=== PATIENT | female | born 1990 | race Caucasian/White ===

== ENCOUNTER 2020-02-27 19:51 | Inpatient (IN) | payer OTHER ==
[2020-02-27] MEDS ORDERED: Tranexamic Acid 1,000 MG in Sodium Chloride 0.9% 100 ML IV PRN (21:33)
[2020-02-27] MEDS ORDERED: Ondansetron 4 MG/2 ML SDV IVPUSH PRN (21:33)
[2020-02-27] MEDS ORDERED: Lidocaine 1% 30 ML SDV INJECT PRN (21:33)
[2020-02-27] MEDS ORDERED: Sodium Chloride 0.9% 10 ML Syringe FLUSH PRN (21:33)
[2020-02-27] MEDS ORDERED: Lactated Ringers 1,000 ML IV ONE (21:33)
[2020-02-27] MEDS ORDERED: Misoprostol 400 MCG (4 X 100 MCG TAB) RECTAL PRN (21:33)
[2020-02-27] MEDS ORDERED: Methylergonovine 0.2 MG/1 ML Amp IM PRN (21:33)
[2020-02-27] MEDS ORDERED: Carboprost Tromethamine 250 MCG/1 ML Amp IM PRN (21:33)
[2020-02-27] MEDS ORDERED: hydrOXYzine HCl 25 MG Tab PO PRN (21:36)
[2020-02-27] MEDS ORDERED: Oxytocin/Normal Saline 30 UNIT/500 ML BAG IV SCH (21:45)
--- NOTE | 2020-02-28 00:08 | HP ---
CHIEF COMPLAINT: Leakage of fluid. HISTORY OF PRESENT ILLNESS: A 29-year-old 1, para 0, currently at 37- 0/7 weeks' gestation based on last menstrual period, presents to Labor and Delivery for evaluation of spontaneous rupture of membranes that occurred around 1745 this evening. Reports that the fluid was clear, possibly a little bit cloudy. She is also having good movement and contractions about every 5 minutes and very mild. No bleeding. Denies any other pregnancies, specific problems, and she is group B strep negative. Last check in the office, her cervix was closed, 25%, -3, and baby was vertex. She denies other issues. HISTORY: First without complications. anatomy ultrasound with bilateral ventricular echogenic focus, otherwise normal. She does plan on and to avoid an intrathecal, but understands that she may change her mind when labor starts going. Also, hoping for delayed cord clamping. LABORATORY DATA: She is blood type A positive. Antibody screen negative. Rubella immune. Syphilis serology nonreactive. Hepatitis B negative. HIV negative. TSH normal 2.17. Hepatitis C negative. Wet prep did show some clue cells and she was treated. One-hour glucose test of 193. Three-hour test fasting of 77, 1 hour 184, 2 hours 141, and 3 hours 98. Group B strep is negative. PAST MEDICAL HISTORY: Unremarkable. She has some tattoos and piercings, but no significant major medical problems. SURGICAL HISTORY: Tonsillectomy in 2004. FAMILY HISTORY: Mother has depression, hypertension, and sleep apnea. Father has hypertension. Three sisters and 1 brother all alive and well. Maternal grandmother with type 2 diabetes and sleep apnea. Maternal grandfather with type 2 diabetes. Paternal grandmother with diabetes and paternal grandmother also has a pancreatic cancer. Paternal grandfather had a heart attack at age 57. SOCIAL HISTORY: The patient is to [place]. This will be their first child together. He quit smoking about 6 months ago. She has never smoked. They have 2 Basset Hounds. 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 MEDICATIONS THIS : Claritin, vitamin, metronidazole, albuterol as needed. ALLERGIES: No known drug allergies. CURRENT MEDICATION: vitamin only. REVIEW OF SYSTEMS: Negative. Denies any headaches, blurry vision, chest pain, shortness of breath, right upper quadrant pain, coughing, sneezing. She has had some edema during the well controlled with some compression hose. No skin rashes. No dysuria. No vaginal irritation or itching. Just a cloudy clear rupture of fluid earlier today. No gastrointestinal complaints. OBJECTIVE: General: Pleasant 29-year-old female appearing her stated age. She is comfortable with her contractions and carries on a conversation without any change in behavior with contractions. Vital Signs: Blood pressure 119/62, pulse of 90, respiratory rate of 18, temperature is 98.7 Fahrenheit. HEENT: Grossly unremarkable. Heart: Regular without murmur. Lungs: Clear to auscultation bilaterally. Abdomen: Gravid, soft, nontender, and bowel sounds are positive. Baseline heart rate at 140 beats per minute. Moderate qyzl-xh-xgrd variability. Accelerations noted. [place] with contractions every 1 to 3 minutes. Cervix exam per the nurse is 1 cm leaking clear fluid. Extremities: No edema, erythema, or tenderness noted. Psychiatrical: No focal deficits. The patient is very pleasant. ASSESSMENT: 1. 37-0/7 weeks' intrauterine by last menstrual period. 2. 1, para 0. 3. Spontaneous rupture of membranes at 1745. 4. Blood type A positive, rubella immune, group B strep negative. 5. Bacterial vaginosis on wet prep. PLAN: At this time, the patient will be admitted to Labor and Delivery. Nursing staff can let me know if any problems or concerns arise. I have made some Vistaril available to help her sleep and get some rest while she can and while she is in early labor. If her contractions space out or she is not making adequate cervical change, we will plan on augmenting with Pitocin. The BV does not need to be treated, but would be a questionable cause of her spontaneous rupture and early term labor onset. Anticipate that she will be in labor for probably a good 18 hours and by then her doctor will be available for delivery. I will let Dr. Santo know that she has the option to come in and deliver her if she delivers before then. Otherwise, I will be happy to watch her through the night. [facility] /[id number] MTDD
[2020-02-28] MEDS: Lactated Ringers 1,000 ML IV SCH ×3 (04:01→11:30)
--- NOTE | 2020-02-28 07:38 | PCM.PNLD ---
Labor Progress Note - VS & Meds Vital Signs: Last Vital Signs Temp 36.7 C 02/28/20 04:00 Pulse 72 02/28/20 06:30 Resp 18 02/27/20 20:02 BP 123/79 02/28/20 06:30 Pulse Ox Active Medications: Current Medications Acetaminophen (Tylenol) 650 mg PO Q4H PRN PRN Reason: Pain (Mild 1-3) and fever Carboprost Tromethamine (Hemabate Ds) 250 mcg IM ASDIRECTED PRN PRN Reason: HEMORRHAGE Fentanyl (Sublimaze) 100 mcg IVPUSH Q1H PRN PRN Reason: Pain (moderate 4-6) Hydroxyzine HCl (Atarax) 25 - 50 mg PO BEDTIME PRN PRN Reason: Sleep Lactated Ringer's (Ringers, Lactated) 1,000 mls @ 125 mls/hr IV ASDIRECTED BA Last Admin: 02/28/20 04:01 Dose: 125 mls/hr Oxytocin/Sodium Chloride (Pitocin In Ns 30 Unit/500 Ml) 30 unit in 500 mls @ 2 mls/hr IV TITRATE BA; Protocol Last Titration: 02/28/20 06:02 Dose: 5 munits/min, 5 mls/hr Tranexamic Acid 1,000 mg/ (Sodium Chloride) 110 mls @ 660 mls/hr IV ONETIME PRN PRN Reason: Bleeding Lidocaine HCl (Xylocaine-Mpf 1%) 30 ml INJECT ASDIRECTED PRN PRN Reason: Perineal Repair Methylergonovine Maleate (Methergine) 0.2 mg IM ASDIRECTED PRN PRN Reason: Hemorrhage Misoprostol (Cytotec) 800 mcg RECTAL ASDIRECTED PRN PRN Reason: Hemorrhage Ondansetron HCl (Zofran) 4 mg IVPUSH Q4H PRN PRN Reason: Nausea/Vomiting Sodium Chloride (Saline Flush) 10 ml FLUSH ASDIRECTED PRN PRN Reason: Keep Vein Open Discontinued Medications Lactated Ringer's (Ringers, Lactated) 1,000 mls @ 999 mls/hr IV BOLUS ONE Stop: 02/27/20 22:33 Last Admin: 02/28/20 04:03 Dose: Not Given - Uterine Contractions Uterine Monitoring Mode: External [place] Contraction Frequency (min): intermittent tracing Contraction Duration (sec): 80-90 Contraction Intensity: Moderate to Strong Uterine Resting Tone: Soft - Monitoring Heart Rate (FHR) Baseline: 130 Heart Rate (FHR) Variability: Moderate (6-25 bmp) Accelerations: Present, 15x15 Decelerations: None Strip Review: Category I - Vaginal Exam Dilation (cm): 1 Effacement (Percent): 75 Station: -1 Cervical Position: Anterior Sterile Vaginal Exam Performed By: Kinjal Santo - Labor Progress (Free Text) Labor Progress: Patient starting to get more uncomfortable with contractions. Kitty every 3-5 minutes. No concerns. Will continue to increase pitocin per protocol.
[2020-02-28] MEDS: fentaNYL 100 MCG/2 ML SDV IVPUSH PRN ×2 (09:17→10:36)
[2020-02-28] MEDS ORDERED: Benzocaine/Menthol 20%-0.5% Spray 56 GM Canister TOP PRN (19:41)
[2020-02-28] MEDS: Ibuprofen 800 MG Tab PO PRN (20:06)
[2020-02-29] MEDS: Acetaminophen 325 MG Tab PO PRN ×2 (03:08→22:08)
[2020-02-29] MEDS: Ibuprofen 800 MG Tab PO PRN ×2 (08:12→16:58)
[2020-02-29] MEDS: Prenatal Multivitamin with Calcium/Folic Acid/Iron Tab PO SCH (08:14)
[2020-02-29] MEDS: Docusate Sodium 100 MG Cap PO PRN ×2 (08:14→22:10)
--- NOTE | 2020-03-01 00:22 | PCM.DEL ---
L & D Note - General Info Date of Service: 02/28/20 Mother's Due Date: 03/19/20 - Delivery Note Labor: Spontaneous, Augmented by Oxytocin Delivery Outcome: Livebirth Infant Delivery Method: Spontaneous Vaginal Delivery-Single Presentation: Vertex Nuchal Cord: Present Anesthesia Type: Local Anesthetic: Lidocaine (Xylocaine) 1% Plain Local Anesthetic Volume: 4cc Amniotic Fluid Description: Clear Episiotomy Type: None Laceration: 1st Degree, Perineal Suture type: Vicryl Suture size: 3-0 Placenta: Intact, Spontaneous Cord: 3 Vessels Estimated Blood Loss: 250 [place]: Bulb Syringe, Stimulated, [place] Used Provider: Kinjal Santo Score 1 min: 9 Score 5 min: 9 Delivery Comments (Free Text/Narrative):: 29-year-old at 37w0d presented to L&D with SROM. Patient was aquilino every 2-3 minutes. Patient progressed through the first stage of labor slowly. Pitocin was started for augmentation due to contractions spacing out. Patient received IV fentanyl for pain control. Around 1100, patient was noted to be 4 cm. She desired an intrathecal for pain control. Patient was unable to undergo intrathecal placement as she rapidly progressed from 4 cm to complete. Patient pushed well for approximately 20 minutes and delivered a viable female infant with Apgars of 9 and 9 at 1 and 5 minutes respectively. was placed on mother's stomach. Cord was clamped x 2 after pulsing ceased. Umbilical cord was cut by patient's . Cord blood was collected. A first degree perineal laceration was noted--bleeding persisted despite pressure to the area so a single figure-of-8 suture was placed for hemostasis after 4 mL of 1% lidocaine was used for anesthesia. Placenta delivered about 5 minutes later and was noted to be intact. There was a small amount of brisk bleeding but this resolved with pitocin initiation. Bleeding improved and uterine tone was noted to be appropriate. Patient tolerated the procedure well, and all questions were answered. Induction Criteria - Augmentation Estimated Pelvis: Reports: Adequate Weight Estimated:: Reports: AGA Reassuring Monitoring Strip: Yes Absence of Tachy Systole: Yes - General Info Date of Service: 02/28/20 - Patient Data Vitals - Most Recent: Last Vital Signs Temp 36.9 C 02/29/20 20:00 Pulse 87 02/29/20 20:00 Resp 16 02/29/20 20:00 BP 124/78 02/29/20 20:00 Pulse Ox 100 02/29/20 08:00 Weight - Most Recent: 87.543 kg Med Orders - Current: Current Medications Acetaminophen (Tylenol) 650 mg PO Q4H PRN PRN Reason: Pain (Mild 1-3) and fever Last Admin: 02/29/20 22:08 Dose: 650 mg Benzocaine/Menthol (Dermoplast Pain Relief [place]) 1 gm TOP ASDIRECTED PRN PRN Reason: Pain Last Admin: 02/28/20 20:07 Dose: 1 spray Carboprost Tromethamine (Hemabate Ds) 250 mcg IM ASDIRECTED PRN PRN Reason: HEMORRHAGE Docusate Sodium (Colace) 100 mg PO BID PRN PRN Reason: Constipation Last Admin: 02/29/20 22:10 Dose: 100 mg Fentanyl (Sublimaze) 100 mcg IVPUSH Q1H PRN PRN Reason: Pain (moderate 4-6) Last Admin: 02/28/20 10:36 Dose: 100 mcg Hydroxyzine HCl (Atarax) 25 - 50 mg PO BEDTIME PRN PRN Reason: Sleep Lactated Ringer's (Ringers, Lactated) 1,000 mls @ 125 mls/hr IV ASDIRECTED BA Last Admin: 02/28/20 11:30 Dose: 125 mls/hr Oxytocin/Sodium Chloride (Pitocin In Ns 30 Unit/500 Ml) 30 unit in 500 mls @ 2 mls/hr IV TITRATE BA; Protocol Last Titration: 02/28/20 11:55 Dose: 500 mls/hr Tranexamic Acid 1,000 mg/ (Sodium Chloride) 110 mls @ 660 mls/hr IV ONETIME PRN PRN Reason: Bleeding Ibuprofen (Motrin) 800 mg PO Q8H PRN PRN Reason: Pain Last Admin: 02/29/20 16:58 Dose: 800 mg Lidocaine HCl (Xylocaine-Mpf 1%) 30 ml INJECT ASDIRECTED PRN PRN Reason: Perineal Repair Last Admin: 02/28/20 12:00 Dose: 30 ml Methylergonovine Maleate (Methergine) 0.2 mg IM ASDIRECTED PRN PRN Reason: Hemorrhage Misoprostol (Cytotec) 800 mcg RECTAL ASDIRECTED PRN PRN Reason: Hemorrhage Ondansetron HCl (Zofran) 4 mg IVPUSH Q4H PRN PRN Reason: Nausea/Vomiting Last Admin: 02/28/20 11:13 Dose: 4 mg Prenat Multivit/Auto Body Painter/Iron/Folic Ac ( Plus Iron) 1 each PO WITHBREAKFAST BA Last Admin: 02/29/20 08:14 Dose: 1 each Sodium Chloride (Saline Flush) 10 ml FLUSH ASDIRECTED PRN PRN Reason: Keep Vein Open Discontinued Medications Lactated Ringer's (Ringers, Lactated) 1,000 mls @ 999 mls/hr IV BOLUS ONE Stop: 02/27/20 22:33 Last Admin: 02/28/20 04:03 Dose: Not Given - Problem List & Annotations (1) PROM (premature rupture of membranes) SNOMED Code(s): 27459599 Code(s): O42.90 - ELENA ROM, 7TH0 BETW RUPT & ONST LABR, UNSP WEEKS OF GEST Status: Acute Current Visit: Yes (2) care SNOMED Code(s): 215754077, 80354291, 419935694, 850389651 Code(s): Z34.90 - ENCNTR FOR SUPRVSN OF NORMAL , UNSP, UNSP TRIMESTER Status: Acute Current Visit: Yes (3) (normal spontaneous vaginal delivery) SNOMED Code(s): 30374649, 859032587 Code(s): O80 - ENCOUNTER FOR FULL-TERM UNCOMPLICATED DELIVERY Status: Acute Current Visit: Yes (4) Perineal laceration SNOMED Code(s): 903125009 Code(s): FUT1960 - Status: Acute Current Visit: Yes - Problem List Review Problem List Initiated/Reviewed/Updated: Yes - My Orders Last 24 Hours: My Active Orders 02/29/20 08:02 Docusate Sodium [Colace] 100 mg PO BID PRN 02/29/20 08:30 Vit with Ca/FA/Iron [ Plus Iron] 1 each PO WITHBREAKFAST - Assessment Assessment:: 29-year-old, now , status post at 37w1d - Plan Plan:: 1. Initiate routine cares. 2. Plans to breastfeed. 3. Anticipate discharge 03/01/2020 Kinjal Santo MD
--- NOTE | 2020-03-01 00:27 | PCM.PNPP ---
- General Info Date of Service: 02/29/20 Subjective Update: Patient is doing well. Some cramping that is well controlled with ibuprofen. Vaginal bleeding has improved. Some discomfort with urinating. Passing gas. Tolerating a general diet. No dizziness or lightheadedness with ambulation. No fever or chills. is working well with use of a nipple shield. No concerns per patient or per nursing staff. Functional Status: Reports: Pain Controlled, Tolerating Diet, Ambulating, Urinating - Review of Systems General: Reports: No Symptoms HEENT: Reports: No Symptoms Pulmonary: Reports: No Symptoms Cardiovascular: Reports: No Symptoms Gastrointestinal: Reports: No Symptoms Musculoskeletal: Reports: No Symptoms Skin: Reports: No Symptoms Neurological: Reports: No Symptoms - Patient Data Vital Signs - Most Recent: Last Vital Signs Temp 36.9 C 02/29/20 20:00 Pulse 87 02/29/20 20:00 Resp 16 02/29/20 20:00 BP 124/78 02/29/20 20:00 Pulse Ox 100 02/29/20 08:00 Weight - Most Recent: 87.543 kg Med Orders - Current: Current Medications Acetaminophen (Tylenol) 650 mg PO Q4H PRN PRN Reason: Pain (Mild 1-3) and fever Last Admin: 02/29/20 22:08 Dose: 650 mg Benzocaine/Menthol (Dermoplast Pain Relief [place]) 1 gm TOP ASDIRECTED PRN PRN Reason: Pain Last Admin: 02/28/20 20:07 Dose: 1 spray Carboprost Tromethamine (Hemabate Ds) 250 mcg IM ASDIRECTED PRN PRN Reason: HEMORRHAGE Docusate Sodium (Colace) 100 mg PO BID PRN PRN Reason: Constipation Last Admin: 02/29/20 22:10 Dose: 100 mg Fentanyl (Sublimaze) 100 mcg IVPUSH Q1H PRN PRN Reason: Pain (moderate 4-6) Last Admin: 02/28/20 10:36 Dose: 100 mcg Hydroxyzine HCl (Atarax) 25 - 50 mg PO BEDTIME PRN PRN Reason: Sleep Lactated Ringer's (Ringers, Lactated) 1,000 mls @ 125 mls/hr IV ASDIRECTED BA Last Admin: 02/28/20 11:30 Dose: 125 mls/hr Oxytocin/Sodium Chloride (Pitocin In Ns 30 Unit/500 Ml) 30 unit in 500 mls @ 2 mls/hr IV TITRATE BA; Protocol Last Titration: 02/28/20 11:55 Dose: 500 mls/hr Tranexamic Acid 1,000 mg/ (Sodium Chloride) 110 mls @ 660 mls/hr IV ONETIME PRN PRN Reason: Bleeding Ibuprofen (Motrin) 800 mg PO Q8H PRN PRN Reason: Pain Last Admin: 02/29/20 16:58 Dose: 800 mg Lidocaine HCl (Xylocaine-Mpf 1%) 30 ml INJECT ASDIRECTED PRN PRN Reason: Perineal Repair Last Admin: 02/28/20 12:00 Dose: 30 ml Methylergonovine Maleate (Methergine) 0.2 mg IM ASDIRECTED PRN PRN Reason: Hemorrhage Misoprostol (Cytotec) 800 mcg RECTAL ASDIRECTED PRN PRN Reason: Hemorrhage Ondansetron HCl (Zofran) 4 mg IVPUSH Q4H PRN PRN Reason: Nausea/Vomiting Last Admin: 02/28/20 11:13 Dose: 4 mg Prenat Multivit/Forrest/Iron/Folic Ac ( Plus Iron) 1 each PO WITHBREAKFAST BA Last Admin: 02/29/20 08:14 Dose: 1 each Sodium Chloride (Saline Flush) 10 ml FLUSH ASDIRECTED PRN PRN Reason: Keep Vein Open Discontinued Medications Lactated Ringer's (Ringers, Lactated) 1,000 mls @ 999 mls/hr IV BOLUS ONE Stop: 02/27/20 22:33 Last Admin: 02/28/20 04:03 Dose: Not Given - Infant Interaction Support Person: - Recovery Exam Fundal Tone: Firm Fundal Level: 1 Fingerbreadths Below Umbilicus Fundal Placement: Midline Lochia Amount: Small Lochia Color: Rubra/Red Perineum Description: Intact, Minimal Bruising/Swelling Episiotomy/Laceration: Approximated Bladder Status: Voiding Urinary Elimination: Voided - Problem List & Annotations (1) PROM (premature rupture of membranes) SNOMED Code(s): 06793904 Code(s): O42.90 - ELENA ROM, 7TH0 BETW RUPT & ONST LABR, UNSP WEEKS OF GEST Status: Acute Current Visit: Yes (2) care SNOMED Code(s): 631770752, 87129425, 389473986, 999497966 Code(s): Z34.90 - ENCNTR FOR SUPRVSN OF NORMAL , UNSP, UNSP TRIMESTER Status: Acute Current Visit: Yes (3) (normal spontaneous vaginal delivery) SNOMED Code(s): 02780641, 706115829 Code(s): O80 - ENCOUNTER FOR FULL-TERM UNCOMPLICATED DELIVERY Status: Acute Current Visit: Yes (4) Perineal laceration SNOMED Code(s): 544879663 Code(s): ONQ2321 - Status: Acute Current Visit: Yes - Problem List Review Problem List Initiated/Reviewed/Updated: Yes - My Orders Last 24 Hours: My Active Orders 02/29/20 08:02 Docusate Sodium [Colace] 100 mg PO BID PRN 02/29/20 08:30 Vit with Ca/FA/Iron [ Plus Iron] 1 each PO WITHBREAKFAST - Assessment Assessment:: 29-year-old, now , PPD#1 status post at 37w1d - Plan Plan:: 1. Continue routine cares. 2. 3. Anticipate discharge 03/01/2020 Kinjal Santo MD
[2020-03-01] MEDS ORDERED: Simethicone 80 MG Tab.Chew PO PRN (00:32)
[2020-03-01] MEDS: Ibuprofen 800 MG Tab PO PRN (08:03)
[2020-03-01] MEDS: Docusate Sodium 100 MG Cap PO PRN (08:03)
[2020-03-01] MEDS: Prenatal Multivitamin with Calcium/Folic Acid/Iron Tab PO SCH (08:03)
--- NOTE | 2020-03-05 22:53 | PCM.DCSUM1 ---
Discharge Summary - Hospital Course Free Text/Narrative:: 29-year-old now status-post at 37w1d Diagnosis: Stroke: No - Discharge Data Discharge Date: 03/01/20 Discharge Disposition: Home, Self-Care 01 Condition: Good - Referral to Home Health Primary Care Physician: Janet Santo MD - Discharge Diagnosis/Problem(s) (1) PROM (premature rupture of membranes) SNOMED Code(s): 91712536 ICD Code: O42.90 - ELENA ROM, 7TH0 BETW RUPT & ONST LABR, UNSP WEEKS OF GEST Status: Acute (2) care SNOMED Code(s): 982199193, 67957524, 150821238, 604569309 ICD Code: Z34.90 - ENCNTR FOR SUPRVSN OF NORMAL , UNSP, UNSP TRIMESTER Status: Acute (3) (normal spontaneous vaginal delivery) SNOMED Code(s): 50064508, 759209431 ICD Code: O80 - ENCOUNTER FOR FULL-TERM UNCOMPLICATED DELIVERY Status: Acute (4) Perineal laceration SNOMED Code(s): 990940724 ICD Code: [id number] - Status: Acute - Patient Summary/Data Operative Procedure(s) Performed: None Complications: None Consults: None Labs Pending at D/C: None Recommended Follow-up Testing/Procedures: None Planned Operative Procedure(s) after DC: None Hospital Course: Please see subjective section - Patient Instructions Diet: Usual Diet as Tolerated Activity: As Tolerated, No Lifting Over 20 Pounds Driving: May Drive Today Showering/Bathing: May Shower Notify Provider of: Fever, Increased Pain, Swelling and Redness - Discharge Plan *PRESCRIPTION DRUG MONITORING PROGRAM REVIEWED*: Not Applicable *COPY OF PRESCRIPTION DRUG MONITORING REPORT IN PATIENT CHAITANYA: Not Applicable Home Medications: Home Meds Mv-Mn/Iron/FA/Herbal/Digestive [ One Tablet] 1 each PO DAILY 02/27/20 [ History] Acetaminophen [Tylenol] 650 mg PO Q4H PRN tablet 03/01/20 [Rx] Benzocaine/Menthol [Dermoplast Pain Relief [place]] 1 gm TOP ASDIRECTED PRN canister 03/01/20 [Rx] Docusate Sodium [Colace] 100 mg PO BID PRN cap 03/01/20 [Rx] Ibuprofen [Motrin] 800 mg PO Q8H PRN tablet 03/01/20 [Rx] severiano Siri [Medi-Pads] 1 each TOP Q4HR PRN pad 03/01/20 [Rx] Patient Handouts: Care of a Perineal Tear, Care After Vaginal Delivery Referrals: Kinjal Santo MD [Primary Care Provider] - (Follow-up in 6-8 weeks for routine visit) - Discharge Summary/Plan Comment DC Time >30 min.: No Discharge Summary/Plan Comment: Discharge home today with follow-up in 6-8 weeks for routine care. Discussed reasons to present to the clinic and ED. Routine discharge information will be provided by nursing staff. Patient voiced no concerns. - General Info Date of Service: 03/01/20 Subjective Update: Patient is doing well. Vaginal bleeding is decreased. Pain has improved overnight and response well to ibuprofen. is going well with use of a nipple shield. Tolerating a general diet. Urinating and passing gas. Did have a bowel movement without difficulty. No fever or chills. No concerns per patient or per nursing staff. Functional Status: Reports: Pain Controlled, Tolerating Diet, Ambulating, Urinating - Review of Systems General: Reports: No Symptoms HEENT: Reports: No Symptoms Pulmonary: Reports: No Symptoms Cardiovascular: Reports: No Symptoms Gastrointestinal: Reports: No Symptoms Musculoskeletal: Reports: Back Pain Skin: Reports: No Symptoms Neurological: Reports: No Symptoms - Patient Data Vitals - Most Recent: Last Vital Signs Temp 36.7 C 03/01/20 08:00 Pulse 87 03/01/20 08:00 Resp 16 03/01/20 08:00 BP 121/71 03/01/20 08:00 Pulse Ox 98 03/01/20 08:00 Weight - Most Recent: 87.543 kg Med Orders - Current: Current Medications Discontinued Medications Acetaminophen (Tylenol) 650 mg PO Q4H PRN PRN Reason: Pain (Mild 1-3) and fever Last Admin: 02/29/20 22:08 Dose: 650 mg Benzocaine/Menthol (Dermoplast Pain Relief [place]) 1 gm TOP ASDIRECTED PRN PRN Reason: Pain Last Admin: 02/28/20 20:07 Dose: 1 spray Carboprost Tromethamine (Hemabate Ds) 250 mcg IM ASDIRECTED PRN PRN Reason: HEMORRHAGE Docusate Sodium (Colace) 100 mg PO BID PRN PRN Reason: Constipation Last Admin: 03/01/20 08:03 Dose: 100 mg Fentanyl (Sublimaze) 100 mcg IVPUSH Q1H PRN PRN Reason: Pain (moderate 4-6) Last Admin: 02/28/20 10:36 Dose: 100 mcg Hydroxyzine HCl (Atarax) 25 - 50 mg PO BEDTIME PRN PRN Reason: Sleep Lactated Ringer's (Ringers, Lactated) 1,000 mls @ 999 mls/hr IV BOLUS ONE Stop: 02/27/20 22:33 Last Admin: 02/28/20 04:03 Dose: Not Given Lactated Ringer's (Ringers, Lactated) 1,000 mls @ 125 mls/hr IV ASDIRECTED BA Last Admin: 02/28/20 11:30 Dose: 125 mls/hr Oxytocin/Sodium Chloride (Pitocin In Ns 30 Unit/500 Ml) 30 unit in 500 mls @ 2 mls/hr IV TITRATE BA; Protocol Last Titration: 02/28/20 11:55 Dose: 500 mls/hr Tranexamic Acid 1,000 mg/ (Sodium Chloride) 110 mls @ 660 mls/hr IV ONETIME PRN PRN Reason: Bleeding Ibuprofen (Motrin) 800 mg PO Q8H PRN PRN Reason: Pain Last Admin: 03/01/20 08:03 Dose: 800 mg Lidocaine HCl (Xylocaine-Mpf 1%) 30 ml INJECT ASDIRECTED PRN PRN Reason: Perineal Repair Last Admin: 02/28/20 12:00 Dose: 30 ml Methylergonovine Maleate (Methergine) 0.2 mg IM ASDIRECTED PRN PRN Reason: Hemorrhage Misoprostol (Cytotec) 800 mcg RECTAL ASDIRECTED PRN PRN Reason: Hemorrhage Ondansetron HCl (Zofran) 4 mg IVPUSH Q4H PRN PRN Reason: Nausea/Vomiting Last Admin: 02/28/20 11:13 Dose: 4 mg Prenat Multivit/Policy Service Coordinator/Iron/Folic Ac ( Plus Iron) 1 each PO WITHBREAKFAST BA Last Admin: 03/01/20 08:03 Dose: 1 each Simethicone (Simethicone) 80 mg PO Q4H PRN PRN Reason: Gas Sodium Chloride (Saline Flush) 10 ml FLUSH ASDIRECTED PRN PRN Reason: Keep Vein Open Witch Siri (Medi-Pads) 1 each TOP Q4HR PRN PRN Reason: Perineal Comfort Measure - Exam General: Reports: Alert, Oriented Lungs: Reports: Clear to Auscultation, Normal Respiratory Effort Cardiovascular: Reports: Regular Rate, Regular Rhythm, No Murmurs GI/Abdominal Exam: Soft, Non-Tender Back Exam: Reports: Normal Inspection Extremities: Pedal Edema (trace bilaterally) Skin: Reports: Warm, Dry, Intact Neurological: Reports: No New Focal Deficit
== END 2020-03-01 11:10 | disposition home or self-care (01) | DRG 807 ==
LOC: DL.OBCHECK 19:51 → DL.OB 21:33 → OBSVTOIN 02-28 11:45 → UNDODISIN 03-01 11:10
PROVIDERS: ADMIT Family Medicine; ATTEND Family Medicine
PROC: 10E0XZZ Delivery of Products of Conception, External Approach (ICD-10-PCS; principal; 2020-02-28)
PROC: 0HQ9XZZ Repair Perineum Skin, External Approach (ICD-10-PCS; 2020-02-28)
DX: O69.81X0 Labor and delivery complicated by cord around neck, without compression, not applicable or unspecified (principal); Z37.0 Single live birth; Z3A.37 37 weeks gestation of pregnancy; O70.0 First degree perineal laceration during delivery; Z28.82 Immunization not carried out because of caregiver refusal; Z20.828 Contact with and (suspected) exposure to other viral communicable diseases
CPT/HCPCS: 36415; 59025; 59409; 84112; 85027; 87210; A9270-GY; J2001; J2405; J2590; J3010; J7120; U0002

== ENCOUNTER 2021-10-04 07:44 | Inpatient (IN) | payer OTHER ==
[2021-10-04] MEDS ORDERED: Carboprost Tromethamine 250 MCG/1 ML Amp IM PRN (07:56)
[2021-10-04] MEDS ORDERED: Ondansetron 4 MG/2 ML SDV IVPUSH PRN (07:56)
[2021-10-04] MEDS ORDERED: Misoprostol 400 MCG (4 X 100 MCG TAB) RECTAL PRN (07:56)
[2021-10-04] MEDS ORDERED: Lidocaine 1% 30 ML SDV INJECT PRN (07:56)
[2021-10-04] MEDS ORDERED: Methylergonovine 0.2 MG/1 ML Amp IM PRN (07:56)
[2021-10-04] MEDS ORDERED: Tranexamic Acid 1,000 MG in Sodium Chloride 0.9% 100 ML IV PRN (07:56)
[2021-10-04] MEDS ORDERED: Lactated Ringers 1,000 ML IV ONE (07:56)
[2021-10-04] MEDS ORDERED: Oxytocin/Normal Saline 30 UNIT/500 ML BAG IV SCH (08:00)
[2021-10-04] MEDS ORDERED: Lactated Ringers 1,000 ML IV SCH (08:00)
--- NOTE | 2021-10-04 11:39 | HP ---
CHIEF COMPLAINT: Elective induction of labor. HISTORY OF PRESENT ILLNESS: Radha Isaacs is a 31-year-old G2, P1-0-0-1 at 39 weeks 4 days' confirmed with last menstrual period on 12/31/2020, here for elective induction. She has previously had great care and relatively uncomplicated , but only significant for impaired glucose tolerance. With 1 hour oral glucose tolerance of 156, passed her 3-hour. Medication exposures include vitamins, sertraline, loratadine, and she is prescribed albuterol inhaler, which she has not taken yet during . Today, she arrives, and does not complain of any contractions, leakage of fluid, or bleeding. She did say yesterday, she might have lost her mucus plug. LABS: Blood type A positive, antibody screen negative, rubella immune, GBS negative. RPR nonreactive. Hepatitis B surface antigen nonreactive. Hepatitis C nonreactive. HIV nonreactive. First trimester TSH 1.08. 22-week ultrasound within normal limits. HISTORY: One spontaneous vaginal delivery on 02/28/2020 at 37 weeks 1 day that produced a 6-pound 5-ounce baby girl. This was significant for premature rupture of membranes, which took 12 hours to get into active labor, and then rapidly progressed from 5 cm to complete. PAST MEDICAL HISTORY: Anxiety and allergic rhinitis. PAST SURGICAL HISTORY: Tonsillectomy in 2004. FAMILY HISTORY: Mom; hypertension, stroke, depression. Father, hypertension. Maternal grandmother, type 2 diabetes mellitus. Maternal grandfather, type 2 diabetes mellitus. Paternal grandmother; type 2 diabetes mellitus, pancreatic cancer. Paternal grandfather, heart attack. Negative for anesthesia problems or bleeding problems. SOCIAL HISTORY: Lives with and daughter in [place]. Works at [employer]. PHYSICAL EXAMINATION: Vitals: 96.8 degrees Fahrenheit, blood pressure 109/74 mmHg, pulse 84, respiratory rate 16. HEENT: Unremarkable. Cardiovascular: Regular rate and rhythm. No obvious murmurs, gallops, or rubs. Pulmonary: Clear to auscultation bilaterally. Abdomen: Gravid, soft, nontender. Baby palpates vertex. Extremities: No swelling, erythema, or tenderness. Cervical: 3.5 cm dilated, 75% effaced, -2 station. [place] shows no contractions with heart tones category 1 with accelerations baseline at 130 beats per minute. LABORATORY DATA: Hemoglobin 12.7, platelet count 189, white blood cell count of 10.1. ASSESSMENT: 1. Intrauterine at 39 weeks 4 days (last menstrual period 12/31/2020). 2. G2, P1-0-0-1. 3. Blood type A positive, rubella immune, group B Streptococcus negative. 4. Impaired glucose tolerance. PLAN: If head is well applied to cervix, will rupture membranes and wait 2 hours for spontaneous labor to begin and then will start Pitocin if needed. The patient does not want intrathecal, but is willing to use IV meds for pain control and continue to allow labor to progress. The patient was seen by myself and Dr. Santo. Assessment and plan are under advisement of Dr. Santo. [facility] /[id number]
[2021-10-04] MEDS ORDERED: Benzocaine/Menthol 20%-0.5% Spray 78 GM Cannister TOP PRN (14:11)
[2021-10-04] MEDS ORDERED: Simethicone 80 MG Tab.Chew PO PRN (14:11)
[2021-10-04] MEDS ORDERED: Oxytocin 10 Units/1 ML SDV IM PRN (14:11)
[2021-10-04] MEDS ORDERED: Zolpidem 5 MG Tab PO PRN (14:11)
[2021-10-04] MEDS: Ibuprofen 800 MG Tab PO PRN (16:23)
--- NOTE | 2021-10-04 18:54 | DEL ---
DATE: 10/04/2021 PREOPERATIVE DIAGNOSES: 1. Intrauterine at 39 weeks 4 days, confirmed with last menstrual period on 12/31/2020. 2. G2, P1-0-0-1. 3. Blood type A positive, rubella immune, GBS negative. 4. Impaired glucose tolerance. POSTOPERATIVE DIAGNOSES: 1. Intrauterine at 39 weeks 4 days, confirmed with last menstrual period on 12/31/2020. 2. G2, P2-0-0-2. 3. Nuchal cord x1 reduced bluntly at . 4. Compound presentation with left hand by face during delivery. 5. Blood type A positive, rubella immune, GBS negative. 6. Impaired glucose tolerance. PROCEDURES PERFORMED: Pitocin augmentation, spontaneous vaginal delivery, and artificial rupture of membranes. ANESTHESIA/ANALGESIA: The patient denied intrathecal and used only nitrous oxide. FINDINGS: Male, score 8 and 9. Weight pending. Nuchal cord x1 reduced bluntly at delivery. Compound presentation with left hand by face SUMMARY OF EVENTS: A 31-year-old with above-listed diagnoses presented to Labor and Delivery for elective induction of labor. At presentation, she was 3.5 cm dilated, 75% effaced, -2 station without contractions. Artificial rupture of membranes occurred at 0845 followed by Pitocin augmentation 2 hours later. She then progressed to 5 cm over the next 4 hours and then to complete in the next hour. At that time, myself and Dr. Santo were called to the room, donned sterile gown and gloves. The patient was pushing and vertex was delivered in APRIL presentation, nuchal cord x1 reduced bluntly with delivery. Left hand was also found up by face during delivery. Anterior and posterior shoulder and rest of infant were then delivered without difficulty. Mouth and nares were suctioned. Baby was placed on mother's abdomen. Cord was doubly clamped and cut and resuscitated on mother's abdomen and warmer. Approximately 10 mL of cord blood was obtained for labs. Placenta was delivered with gentle cord traction and fundal massage within 10 minutes. Perineum, vagina, and perirectal areas were examined without any tears or lacerations. Fundal massage ensued and bleeding decreased. Mother and are currently stable at the time of dictation. The patient was seen by myself and Dr. Santo. All procedures were under advisement of Dr. Santo. [facility] /[id number] [facility]
[2021-10-04] MEDS: Acetaminophen 325 MG Tab PO PRN (19:58)
[2021-10-04] MEDS: Docusate Sodium 100 MG Cap PO PRN (19:58)
[2021-10-04] MEDS ORDERED: Sertraline 50 MG Tab PO SCH (21:00)
[2021-10-04] MEDS ORDERED: Prenatal Multivitamin with Calcium/Folic Acid/Iron Tab PO SCH (21:00)
[2021-10-05] MEDS: Ibuprofen 800 MG Tab PO PRN (03:39)
[2021-10-05] MEDS: Acetaminophen 325 MG Tab PO PRN (08:32)
[2021-10-05] MEDS: Docusate Sodium 100 MG Cap PO PRN (08:32)
[2021-10-05] MEDS ORDERED: Prenatal Multivitamin with Calcium/Folic Acid/Iron Tab PO SCH (09:00)
--- NOTE | 2021-10-05 13:35 | PCM.DCSUM1 ---
Discharge Summary - Hospital Course HPI Initial Comments: 31 y/o presented to Labor and Delivery for elective induction of labor at 39 wk 4 d gestation c.w. LMP on 12/31/20. She previously had great care and an uncomplicated only significant for impaired glucose tolerance. Pertinent labs include blood type A+, ab screen negative, Rubella immune, GBS negative, HIV and RPR nonreactive, and hepB and C nonreactive. - Discharge Data Discharge Date: 10/05/21 Discharge Disposition: Home, Self-Care 01 Condition: Good - Referral to Home Health Primary Care Physician: Janet Santo MD - Patient Summary/Data Hospital Course: After admission, the patient underwent AROM and Pitocin augmentation. The then rapidly progressed from 5 cm to complete in less than one hour and had an uncomplicated spontaneous vaginal delivery producing a baby boy weighing 3315 g w. APGARs of 8 and 9. Pain management was achieved with nitrous oxide as patient refused an intrathecal. There were no tears or laceration repairs. Mother and baby did very well after delivery and took to breast right away. Today, mother has no concerns and would like to discharge home. She has been urinating independently and passing gas. Her pain has been well controlled with Tylenol and ibuprofen and bleeding is minimal. She thinks breast feeding is going well and would like to complete circumcision in the clinic next week. - Patient Instructions Diet: Usual Diet as Tolerated Activity: As Tolerated, No Lifting Over 20 Pounds Showering/Bathing: May Shower Notify Provider of: Fever, Increased Pain, Swelling and Redness, Drainage, Nausea and/or Vomiting Other/Special Instructions: Pelvic rest for 6 weeks - Discharge Plan *PRESCRIPTION DRUG MONITORING PROGRAM REVIEWED*: Not Applicable *COPY OF PRESCRIPTION DRUG MONITORING REPORT IN PATIENT CHAITANYA: Not Applicable Home Medications: Home Meds Acetaminophen [Tylenol] 650 mg PO Q4H PRN tablet 03/01/20 [Rx] Docusate Sodium [Colace] 100 mg PO BID PRN cap 03/01/20 [Rx] Vit with Ca/FA/Iron [ Plus Iron] 1 tab PO DAILY 09/06/21 [History] Sertraline [Zoloft] 25 mg PO DAILY 09/06/21 [History] Patient Handouts: Vaginal Delivery Referrals: Kinjal Santo MD [Primary Care Provider] - (Please schedule 6 week appointment. ) - Discharge Summary/Plan Comment DC Time >30 min.: Yes Total # of Minutes for Discharge Time: 30 - Patient Data Vitals - Most Recent: Last Vital Signs Temp 98.4 F 10/05/21 08:00 Pulse 89 10/05/21 08:00 Resp 16 10/05/21 08:00 BP 117/72 10/05/21 08:00 Pulse Ox 96 10/04/21 20:00 Weight - Most Recent: 85.729 kg Med Orders - Current: Current Medications Acetaminophen (Acetaminophen 325 Mg Tab) 650 mg PO Q4H PRN PRN Reason: Pain (Mild 1-3) and fever Last Admin: 10/05/21 08:32 Dose: 650 mg Documented by: Benzocaine/Menthol (Benzocaine/Menthol 20%-0.5% [place] 78 Gm Cannister) 0 gm TOP Q4H PRN PRN Reason: Perineal comfort measures Last Admin: 10/04/21 16:23 Dose: 1 spray Documented by: Carboprost Tromethamine (Carboprost Tromethamine 250 Mcg/1 Ml Amp) 250 mcg IM ASDIRECTED PRN PRN Reason: HEMORRHAGE Docusate Sodium (Docusate Sodium 100 Mg Cap) 100 mg PO BID PRN PRN Reason: Constipation Last Admin: 10/05/21 08:32 Dose: 100 mg Documented by: Tranexamic Acid 1,000 mg/ (Sodium Chloride) 110 mls @ 660 mls/hr IV ONETIME PRN PRN Reason: Bleeding Oxytocin/Sodium Chloride (Pitocin In Ns 30 Unit/500 Ml) 30 unit in 500 mls @ 2 mls/hr IV TITRATE BA; Protocol Last Titration: 10/04/21 16:20 Dose: 0 munits/min, 0 mls/hr Documented by: Lactated Ringer's (Ringers, Lactated) 1,000 mls @ 125 mls/hr IV ASDIRECTED BA Last Admin: 10/04/21 09:08 Dose: 125 mls/hr Documented by: Ibuprofen (Ibuprofen 800 Mg Tab) 800 mg PO Q8H PRN PRN Reason: Cramping Last Admin: 10/05/21 03:39 Dose: 800 mg Documented by: Lidocaine HCl (Lidocaine 1% 30 Ml Sdv) 30 ml INJECT ASDIRECTED PRN PRN Reason: Perineal Repair Methylergonovine Maleate (Methylergonovine 0.2 Mg/1 Ml Amp) 0.2 mg IM ASDIRECTED PRN PRN Reason: Hemorrhage Misoprostol (Misoprostol 400 Mcg (4 X 100 Mcg Tab)) 800 mcg RECTAL ASDIRECTED PRN PRN Reason: Hemorrhage Ondansetron HCl (Ondansetron 4 Mg/2 Ml Sdv) 4 mg IVPUSH Q4H PRN PRN Reason: Nausea/Vomiting Oxytocin (Oxytocin 10 Units/1 Ml Sdv) 10 unit IM ONETIME PRN PRN Reason: Bleeding Prenat Multivit/Hepzibah/Iron/Folic Ac ( Multivitamin With Calcium/Folic Acid/Iron Tab) 1 each PO BEDTIME [facility] Last Admin: 10/04/21 20:13 Dose: Not Given Documented by: Sertraline HCl (Sertraline 50 Mg Tab) 25 mg PO BEDTIME BA Last Admin: 10/04/21 20:14 Dose: Not Given Documented by: Simethicone (Simethicone 80 Mg Tab.Chew) 80 mg PO Q4H PRN PRN Reason: Gas Zolpidem Tartrate (Zolpidem 5 Mg Tab) 5 mg PO BEDTIME PRN PRN Reason: Insomnia Discontinued Medications Lactated Ringer's (Ringers, Lactated) 1,000 mls @ 999 mls/hr IV BOLUS ONE Stop: 10/04/21 08:56 Last Admin: 10/04/21 16:54 Dose: Not Given Documented by: Prenat Multivit/Hepzibah/Iron/Folic Ac ( Multivitamin With Calcium/Folic Acid/Iron Tab) 1 each PO DAILY BA - Exam General: Reports: Alert, Oriented, No Acute Distress Lungs: Reports: Clear to Auscultation, Normal Respiratory Effort Cardiovascular: Reports: Regular Rate, Regular Rhythm, No Murmurs GI/Abdominal Exam: Soft, Non-Tender, Other (uterus is firm below umbilicus) Extremities: Non-Tender, Normal Capillary Refill, Pedal Edema Skin: Reports: Warm, Dry, Intact Neurological: Reports: No New Focal Deficit Psy/Mental Status: Reports: Alert, Normal Affect, Normal Mood Discharge Operative/Procedures - Procedures Performed Operations: AROM, pitocin augmentation, spontaneous vaginal delivery
== END 2021-10-05 15:41 | disposition home or self-care (01) | DRG 807 ==
LOC: DL.OB 07:44
PROVIDERS: ADMIT Family Medicine; ATTEND Family Medicine
PROC: 10E0XZZ Delivery of Products of Conception, External Approach (ICD-10-PCS; principal; 2021-10-04)
PROC: 10907ZC Drainage of Amniotic Fluid, Therapeutic from Products of Conception, Via Natural or Artificial Opening (ICD-10-PCS; 2021-10-04)
DX: O69.81X0 Labor and delivery complicated by cord around neck, without compression, not applicable or unspecified (principal); Z37.0 Single live birth; Z3A.39 39 weeks gestation of pregnancy; O32.6XX0 Maternal care for compound presentation, not applicable or unspecified; Z20.822 Contact with and (suspected) exposure to COVID-19
CPT/HCPCS: 36415; 59409; 85027; A9270-GY; J2590; J7120; U0002